=== PATIENT | male | born 1970 | race African-American/Black ===

== ENCOUNTER 2017-06-03 15:53 | Emergency (ER) | payer BC ==
[~2017-06-03] VITALS: Ht 177.8 cm; Wt 150.0 kg
[2017-06-03] MEDS ORDERED: APIX5TAB PO (16:02)
[2017-06-03] MEDS ORDERED: LIDOCAINE HCL 1% 20ML VIAL (Pyxis) INJ MC ONE (16:45)
[2017-06-03 17:01] LABS: BASOPHILS % 0.7 % (0.0-2.0); EOSINOPHILS % 1.7 % (0.0-5.0); HEMATOCRIT. 51.6 % (42.0-52.0); HEMOGLOBIN. 16.6 g/dL (14.0-18.0); MEAN CORPUSCULAR HEMOGLOBIN 28.7 pg (28.0-32.0); MEAN PLATELET VOLUME 9.1 fl (7.4-10.4); MONOCYTES % 7.9 % (2.0-8.0); NEUTROPHILS % 74.7 % (40.0-76.0); PLATELET 249 x1000/uL (130-400); RED CELL DISTRIBUTION WIDTH 14.5 % (11.6-14.6)
[2017-06-03 17:05] LABS: CHLORIDE 107 mEq/L (98-107)
[2017-06-03 17:07] LABS: INR 1.1; PARTIAL THROMBOPLASTIN TIME 30.1 sec (23.4-31.0)
[2017-06-03 17:11] LABS: CARBON DIOXIDE 29 mEq/L (21-32)
[2017-06-03] MEDS ORDERED: MORPHINE SULFATE 4 MG/ML CPJ (NOT FOR IM USE) IV STA (17:20)
[2017-06-03] MEDS ORDERED: ONDANSETRON HCL 4MG/2ML VIAL IV STA (17:20)
[2017-06-03] MEDS ORDERED: CLONIDINE 0.2MG TABLET PO ONE (17:45)
[2017-06-03 18:15] VITALS: BP 136/88
== END 2017-06-03 18:21 | disposition home or self-care (01) ==
LOC: ER 16:39
DX: L97.829 Non-pressure chronic ulcer of other part of left lower leg with unspecified severity (principal); I87.2 Venous insufficiency (chronic) (peripheral); I10 Essential (primary) hypertension
CPT/HCPCS: 36415; 80048; 85025; 85610; 85730; 86850; 86900; 86901; 96374; 96375; 99284; J2270; J2405; J3490; J7030; Z7610